=== PATIENT | male | born 1980 | race Two or more races ===

== ENCOUNTER 2019-01-09 18:31 | Emergency (ER) | payer OTHER ==
[~2019-01-09] VITALS: Ht 172.7 cm; Wt 90.7 kg
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
[2019-01-09] MEDS ORDERED: ACETAMINOPHEN ES 500 MG TABLET ONE (19:29)
[2019-01-09] MEDS ORDERED: ACETAMINOPHEN 325 MG TABLET PO ONE (19:30)
[2019-01-09 21:55] VITALS: BP 140/88
== END 2019-01-09 21:56 | disposition home or self-care (01) ==
LOC: ER 18:43
DX: S49.81XA Other specified injuries of right shoulder and upper arm, initial encounter (principal); S59.801A Other specified injuries of right elbow, initial encounter; S69.81XA Other specified injuries of right wrist, hand and finger(s), initial encounter; Z98.890 Other specified postprocedural states; W01.0XXA Fall on same level from slipping, tripping and stumbling without subsequent striking against object, initial encounter; Y93.01 Activity, walking, marching and hiking; Y92.89 Other specified places as the place of occurrence of the external cause; Y99.8 Other external cause status
CPT/HCPCS: 71045-TC; 73030-TC; 73070-TC; 73140-TC